=== PATIENT | male | born 1990 | race Hispanic/Latino ===

== ENCOUNTER 2022-09-16 11:36 | Inpatient (IN) | payer MEDICAID ==
[~2022-09-16] VITALS: Ht 121.9 cm; Wt 72.2 kg
[2022-09-16 12:08] LABS: ABG BASE EXCESS 3.6 mmol/L (-2.0-3.0); ABG HCO3 25.3 mmol/L (21.0-28.0); ABG OXYGEN SATURATION 94.2 % (95.0-99.0); ABG PCO2 30 mmHg (35-48)
[2022-09-16 12:15] LABS: BASOPHILS % (AUTO) 0.3 % (0.0-5.0); HEMATOCRIT 42.8 % (42-54); LYMPHOCYTES % (AUTO) 5.9 % (21.0-51.0); MEAN CORPUSCULAR HGB CONC 34.6 g/dL (32.0-36.0); MEAN CORPUSCULAR VOLUME 89.5 fL (79-99); MONOCYTES % (AUTO) 4.4 % (3.0-13.0); NEUTROPHILS % (AUTO) 88.8 % (40.0-77.0); PLATELET COUNT (AUTO) 161 K/uL (130-400); RED BLOOD CELL COUNT(AUTO) 4.78 MIL/uL (4.50-6.20); RED CELL DISTRIBUTION WIDTH 15.6 % (11.0-15.5); WHITE BLOOD COUNT (AUTO) 7.2 K/uL (4.8-10.8)
[2022-09-16] MEDS ORDERED: IPRATROPIUM/ALBUTEROL SULFATE 3 ML SOLUTION IH ONE (12:30)
[2022-09-16] MEDS ORDERED: LEVOFLOXACIN 500 MG/D5W 100 ML 100 ML IV SCH (12:30)
[2022-09-16] MEDS ORDERED: 0.9%NACL 1000ML 2,205 ML IV SCH (12:30)
[2022-09-16 12:41] LABS: CREATININE 1.1 mg/dL (0.5-1.5); POTASSIUM 3.5 mmol/L (3.5-5.1)
[2022-09-16 12:44] LABS: ALBUMIN 2.5 g/dL (3.5-5.0); TOTAL PROTEIN, SERUM 6.8 g/dL (6.0-8.3)
[2022-09-16 13:27] LABS: B-TYPE NATRIURETIC PEPTIDE 82 pg/mL (0-100)
[2022-09-16] MEDS ORDERED: MAGNESIUM 2GM PREMIX 50ML 50 ML IV PRN (14:00)
[2022-09-16] MEDS ORDERED: LIDOCAINE HCL-MPF 1% 2ML VIAL IV PRN (14:00)
[2022-09-16] MEDS ORDERED: POTASSIUM CHLORIDE 20MEQ/100ML 100 ML IV PRN (14:00)
[2022-09-16] MEDS ORDERED: GUAIFENESIN-DM 200/20 MG 10 ML PO PRN (14:00)
[2022-09-16] MEDS ORDERED: MAG/ALUM/SIMETH 30 ML UDCUP PO PRN (14:00)
[2022-09-16] MEDS ORDERED: LACTULOSE 20 GM/30 ML UDCUP PO PRN (14:00)
[2022-09-16] MEDS ORDERED: AZITHROMYCIN 500MG+NS 250ML 250 ML IV SCH (14:00)
[2022-09-16] MEDS ORDERED: NITROGLYCERIN 0.4 MG SL TAB SL PRN (14:00)
[2022-09-16] MEDS ORDERED: ONDANSETRON 4MG INJ IV PRN (14:00)
[2022-09-16] MEDS ORDERED: DiphenhydrAMINE HCL 50 MG/ML VIAL IV PRN (14:00)
[2022-09-16] MEDS ORDERED: DIPHENHYDRAMINE HCL 25 MG CAPSULE PO PRN (14:00)
[2022-09-16] MEDS ORDERED: ACETAMINOPHEN 325 MG TAB PO PRN ×2 (14:00)
[2022-09-16] MEDS: 0.9%NACL 1000ML 1,000 ML IV SCH (14:10)
[2022-09-16] MEDS: CEFTRIAXONE 1G VIAL IV SCH (14:10)
[2022-09-16 17:35] LABS: APPEARANCE,URINE CLEAR (CLEAR); BILIRUBIN,URINE NEGATIVE (NEGATIVE); COLOR,URINE LIGHT-YELLOW (YELLOW); GLUCOSE, URINE (UA) NEGATIVE (NEGATIVE); KETONES,URINE NEGATIVE (NEGATIVE); LEUKOCYTE ESTERASE ,URINE NEGATIVE Leu/uL (NEGATIVE); NITRATE,URINE NEGATIVE (NEGATIVE); OCCULT BLOOD,URINE NEGATIVE (NEGATIVE); PROTEIN,URINE NEGATIVE (NEGATIVE); UROBILINOGEN,URINE 0.2 mg/dL (0.2-1.0)
[2022-09-16 17:42] LABS: MUCUS,URINE RARE LPF (None Seen); SQUAMOUS EPITHELIAL CELL,UR RARE /HPF (0-2); WBC,URINE 0-1 /HPF (0-1)
[2022-09-16] MEDS: IPRATROPIUM/ALBUTEROL SULFATE 3 ML SOLUTION IH SCH ×2 (18:16→23:13)
[2022-09-16] MEDS: BUDESONIDE 0.5 MG/2 ML INH IH SCH (18:16)
[2022-09-16] MEDS: FAMOTIDINE 20MG TAB PO SCH (20:45)
[2022-09-16] MEDS ORDERED: FAMOTIDINE 20MG VIAL IV PRN (21:00)
[2022-09-17 00:40] VITALS: BP 105/67
[2022-09-17] MEDS: 0.9%NACL 1000ML 1,000 ML IV SCH ×2 (02:43→12:30)
[2022-09-17 05:30] VITALS: BP 101/71
[2022-09-17 05:49] LABS: BASOPHILS % (AUTO) 0.2 % (0.0-5.0); HEMATOCRIT 38.5 % (42-54); LYMPHOCYTES % (AUTO) 15.6 % (21.0-51.0); MEAN CORPUSCULAR HEMOGLOBIN 31.1 pg (27.0-33.0); MEAN CORPUSCULAR VOLUME 91.4 fL (79-99); MONOCYTES % (AUTO) 6.7 % (3.0-13.0); NEUTROPHILS % (AUTO) 76.8 % (40.0-77.0); PLATELET COUNT (AUTO) 144 K/uL (130-400); RED BLOOD CELL COUNT(AUTO) 4.21 MIL/uL (4.50-6.20); RED CELL DISTRIBUTION WIDTH 15.9 % (11.0-15.5); WHITE BLOOD COUNT (AUTO) 5.6 K/uL (4.8-10.8)
[2022-09-17 06:16] LABS: CREATININE 0.9 mg/dL (0.5-1.5); PHOSPHORUS 3.2 mg/dL (2.5-4.9); POTASSIUM 3.3 mmol/L (3.5-5.1); THYROID STIMULATING HORMONE 2.6 uIU/mL (0.36-3.74)
[2022-09-17] MEDS: IPRATROPIUM/ALBUTEROL SULFATE 3 ML SOLUTION IH SCH ×4 (06:56→23:54)
[2022-09-17] MEDS: BUDESONIDE 0.5 MG/2 ML INH IH SCH ×2 (06:56→19:20)
[2022-09-17 07:20] VITALS: BP 99/54
[2022-09-17] MEDS: FAMOTIDINE 20MG TAB PO SCH ×2 (09:29→21:02)
[2022-09-17] MEDS: ENOXAPARIN SODIUM 40 MG/0.4 ML SYRINGE SQ SCH (10:20)
[2022-09-17 11:20] VITALS: BP 124/58
[2022-09-17] MEDS: KCL 20 MEQ ERTAB PO PRN ×2 (12:42→14:40)
[2022-09-17] MEDS: CEFTRIAXONE 1G VIAL IV SCH (12:56)
[2022-09-17] MEDS: ZOSYN 3.375GM +NS 50ML IV SCH ×2 (14:39→20:59)
[2022-09-17 15:20] VITALS: BP 102/60
[2022-09-17 20:00] VITALS: BP 119/66
[2022-09-18] VITALS (7 sets, daily range): BP systolic 111–135; BP diastolic 59–93
[2022-09-18 03:58] LABS: BASOPHILS % (AUTO) 0.3 % (0.0-5.0); EOSINOPHILS % (AUTO) 0.8 % (0.0-8.0); HEMATOCRIT 38.5 % (42-54); LYMPHOCYTES % (AUTO) 31.8 % (21.0-51.0); MEAN CORPUSCULAR HEMOGLOBIN 30.5 pg (27.0-33.0); MEAN CORPUSCULAR HGB CONC 33.5 g/dL (32.0-36.0); MONOCYTES % (AUTO) 9.4 % (3.0-13.0); NEUTROPHILS % (AUTO) 56.9 % (40.0-77.0); PLATELET COUNT (AUTO) 175 K/uL (130-400); RED BLOOD CELL COUNT(AUTO) 4.23 MIL/uL (4.50-6.20); RED CELL DISTRIBUTION WIDTH 15.8 % (11.0-15.5); WHITE BLOOD COUNT (AUTO) 3.8 K/uL (4.8-10.8)
[2022-09-18 04:07] LABS: CREATININE 1.1 mg/dL (0.5-1.5); POTASSIUM 3.1 mmol/L (3.5-5.1)
[2022-09-18] MEDS: ZOSYN 3.375GM +NS 50ML IV SCH ×3 (06:07→21:37)
[2022-09-18] MEDS: POTASSIUM CHLORIDE 10% ELIXIR 20 MEQ/15 ML UDCUP PO PRN ×3 (06:07→23:37)
[2022-09-18] MEDS: BUDESONIDE 0.5 MG/2 ML INH IH SCH ×2 (06:33→19:14)
[2022-09-18] MEDS: IPRATROPIUM/ALBUTEROL SULFATE 3 ML SOLUTION IH SCH ×4 (06:33→23:26)
[2022-09-18] MEDS: FAMOTIDINE 20MG TAB PO SCH ×2 (08:59→21:37)
[2022-09-18] MEDS: ENOXAPARIN SODIUM 40 MG/0.4 ML SYRINGE SQ SCH (09:00)
[2022-09-18] MEDS ORDERED: AMOX1TAB16 PO (09:29)
[2022-09-18] MEDS ORDERED: BUDE0.5A3 IH (09:29)
[2022-09-18] MEDS ORDERED: IPRA3AMP24 IH (09:29)
[2022-09-18] MEDS: 0.9%NACL 1000ML 1,000 ML IV SCH (13:22)
[2022-09-19 04:42] VITALS: BP 102/59
[2022-09-19 05:25] LABS: BASOPHILS % (AUTO) 0.6 % (0.0-5.0); EOSINOPHILS % (AUTO) 2.1 % (0.0-8.0); MEAN CORPUSCULAR HEMOGLOBIN 30.8 pg (27.0-33.0); MEAN CORPUSCULAR HGB CONC 32.9 g/dL (32.0-36.0); MEAN CORPUSCULAR VOLUME 93.4 fL (79-99); MONOCYTES % (AUTO) 11.7 % (3.0-13.0); NEUTROPHILS % (AUTO) 45.7 % (40.0-77.0); PLATELET COUNT (AUTO) 227 K/uL (130-400); RED BLOOD CELL COUNT(AUTO) 4.39 MIL/uL (4.50-6.20); RED CELL DISTRIBUTION WIDTH 15.7 % (11.0-15.5); WHITE BLOOD COUNT (AUTO) 3.3 K/uL (4.8-10.8)
[2022-09-19 05:31] LABS: CREATININE 1.1 mg/dL (0.5-1.5)
[2022-09-19] MEDS: ZOSYN 3.375GM +NS 50ML IV SCH ×2 (05:51→13:14)
[2022-09-19] MEDS: BUDESONIDE 0.5 MG/2 ML INH IH SCH (06:32)
[2022-09-19] MEDS: IPRATROPIUM/ALBUTEROL SULFATE 3 ML SOLUTION IH SCH ×2 (06:32→11:27)
[2022-09-19] MEDS: ENOXAPARIN SODIUM 40 MG/0.4 ML SYRINGE SQ SCH (08:45)
[2022-09-19] MEDS: FAMOTIDINE 20MG TAB PO SCH (08:45)
[2022-09-19 09:53] VITALS: BP 111/81
[2022-09-19] MEDS: 0.9%NACL 1000ML 1,000 ML IV SCH (10:20)
[2022-09-19 11:51] VITALS: BP 100/64
== END 2022-09-19 14:45 | disposition home or self-care (01) | DRG 720 ==
LOC: EDH 11:36 → EDHIP 11:37 → UNDOADMIN 13:35 → EDHIP 13:35 → 4BH 09-17 00:56
PROVIDERS: ADMIT Internal Medicine; ATTEND Internal Medicine
DX: A41.9 Sepsis, unspecified organism (principal); J96.01 Acute respiratory failure with hypoxia; J18.9 Pneumonia, unspecified organism; Z20.822 Contact with and (suspected) exposure to COVID-19; E87.6 Hypokalemia; Q90.9 Down syndrome, unspecified
CPT/HCPCS: 36415; 36600; 71045; 74230; 80048; 80053; 81001; 82435; 82550; 82803; 82947; 83605; 83735; 83880; 84100; 84132; 84145; 84295; 84443; 84484; 85018; 85025; 87040; 87635; 87804; 87880; 92610; 92611; 93005; 93306; 94640; 94664; 94760; 99291; C9803; G0378; J0456; J0696; J1650; J1956; J2543; J7030

== ENCOUNTER 2023-05-24 02:38 | Inpatient (IN) | payer MEDICAID ==
[~2023-05-24] VITALS: Ht 139.7 cm; Wt 74.4 kg
[~2023-05-24 02:38] MED LIST: AMOX1TAB16 PO; BUDE0.5A3 IH; IPRA3AMP24 IH
[2023-05-24] MEDS ORDERED: IBUPROFEN 100 MG/5 ML SUSP UDCUP ONE (03:59)
[2023-05-24] MEDS ORDERED: ACETAMINOPHEN 325 MG/10.15ML UDCUP ONE (03:59)
[2023-05-24] MEDS ORDERED: ACETAMINOPHEN 500 MG TABLET PO ONE (04:00)
[2023-05-24] MEDS ORDERED: IBUPROFEN 800 MG TAB PO ONE (04:00)
[2023-05-24] MEDS ORDERED: 0.9%NACL 1000ML 2,259 ML IV ONE (04:00)
[2023-05-24 04:16] LABS: BASOPHILS # (AUTO) 0.03 K/uL (0.00-0.20); BASOPHILS % (AUTO) 0.4 % (0.0-5.0); EOSINOPHILS # (AUTO) 0.01 K/uL (0.00-0.70); EOSINOPHILS % (AUTO) 0.1 % (0.0-8.0); HEMATOCRIT 49.9 % (42-54); IMMATURE GRANULOCYTE ABSOLUTE 0.04 K/uL (0-1); LYMPHOCYTES # (AUTO) 0.3 K/uL (1.0-4.8); MEAN CORPUSCULAR HEMOGLOBIN 31.5 pg (27.0-33.0); MEAN CORPUSCULAR HGB CONC 33.7 g/dL (32.0-36.0); MEAN CORPUSCULAR VOLUME 93.4 fL (79-99); MONOCYTES # (AUTO) 0.4 K/uL (0.1-1.0); MONOCYTES % (AUTO) 4.7 % (3.0-13.0); NEUTROPHILS # (AUTO) 7.7 K/uL (1.8-7.7); NEUTROPHILS % (AUTO) 90.3 % (40.0-77.0); PLATELET COUNT (AUTO) 186 K/uL (130-400); RED BLOOD CELL COUNT(AUTO) 5.34 MIL/uL (4.50-6.20); RED CELL DISTRIBUTION WIDTH 15.1 % (11.0-15.5); WHITE BLOOD COUNT (AUTO) 8.5 K/uL (4.8-10.8)
[2023-05-24 04:26] LABS: CREATININE 1.3 mg/dL (0.5-1.5); POTASSIUM 3.9 mmol/L (3.5-5.1)
[2023-05-24 04:30] LABS: ALBUMIN 3.4 g/dL (3.5-5.0); BILIRUBIN,TOTAL 0.3 mg/dL (0.2-1.0); TOTAL PROTEIN, SERUM 8.3 g/dL (6.0-8.3)
[2023-05-24] MEDS ORDERED: ALBUTEROL 0.083% 2.5 MG/3 ML INH IH ONE (04:30)
[2023-05-24] MEDS ORDERED: FAMOTIDINE 20MG VIAL IV ONE (04:30)
[2023-05-24] MEDS ORDERED: METOCLOPRAMIDE 10 MG/2 ML VIAL IVP ONE (04:30)
[2023-05-24] MEDS ORDERED: DEXAMETHASONE SOD PHOSPHATE 4 MG/ML 1ML VIAL IV ONE (04:30)
[2023-05-24 04:39] LABS: RAPID GROUP A STREP negative (NEGATIVE)
[2023-05-24 04:45] VITALS: PULSE 117; RESP 18
[2023-05-24 04:47] LABS: SARS-CoV-2, RNA, NAAT POSITIVE SARS CoV-2 (NEGATIVE)
[2023-05-24 04:48] LABS: INFLUENZA TYPE A Negative For Type A (NEGATIVE); INFLUENZA TYPE B Negative For Type B (NEGATIVE)
[2023-05-24] MEDS ORDERED: CEFTRIAXONE 2GM VIAL IVPB ONE (06:30)
[2023-05-24 06:41] VITALS: TEMP 99.3
[2023-05-24] MEDS: AZITHROMYCIN 500MG+NS 250ML IVPB SCH (06:45)
[2023-05-24 08:47] LABS: ABG HCO3 20.4 mmol/L (21.0-28.0); ABG OXYGEN SATURATION 94.2 % (95.0-99.0); ABG PCO2 32 mmHg (35-48); ABG PH 7.418 (7.350-7.450); CARBON MONOXIDE 1.1; HHb 5.7; PO2, ARTERIAL BG 69.8 mmHg (83.0-108.0); VENT MODE, BG 2 L NC (ROOM AIR)
[2023-05-24] MEDS ORDERED: ACETAMINOPHEN 325 MG TAB PO PRN ×2 (09:30)
[2023-05-24] MEDS ORDERED: ONDANSETRON 4MG INJ IV PRN (09:30)
[2023-05-24] MEDS ORDERED: AZITHROMYCIN 500MG+NS 250ML IVPB SCH (09:30)
[2023-05-24] MEDS: CEFTRIAXONE 1G VIAL IVPB SCH (09:30)
[2023-05-24] MEDS ORDERED: GUAIFENESIN-DM 200/20 MG 10 ML PO PRN (10:00)
[2023-05-24] MEDS: IPRATROPIUM/ALBUTEROL SULFATE 3 ML SOLUTION IH SCH ×4 (10:38→22:42)
[2023-05-24 10:42] VITALS: PULSE 75; RESP 18
[2023-05-24] MEDS: DEXAMETHASONE SOD PHOSPHATE 4 MG/ML 1ML VIAL IVP SCH (16:44)
[2023-05-24 18:38] VITALS: PULSE 103; RESP 18
[2023-05-24 18:41] VITALS: PULSE 103; RESP 18; O2SAT 96
[2023-05-24 22:42] VITALS: PULSE 106; RESP 18
[2023-05-25] VITALS (13 sets, daily range): BP systolic 93–119; BP diastolic 50–62; PULSE 72–100; RESP 17–22; O2SAT 94–95
[2023-05-25] MEDS: DEXAMETHASONE SOD PHOSPHATE 4 MG/ML 1ML VIAL IVP SCH ×3 (05:00→22:32)
[2023-05-25] MEDS: AZITHROMYCIN 500MG+NS 250ML IVPB SCH (05:01)
[2023-05-25 06:43] LABS: BASOPHILS # (AUTO) 0.01 K/uL (0.00-0.20); BASOPHILS % (AUTO) 0.1 % (0.0-5.0); HEMATOCRIT 43.4 % (42-54); IMMATURE GRANULOCYTE ABSOLUTE 0.06 K/uL (0-1); LYMPHOCYTES # (AUTO) 0.3 K/uL (1.0-4.8); LYMPHOCYTES % (AUTO) 2.2 % (21.0-51.0); MEAN CORPUSCULAR HEMOGLOBIN 31.3 pg (27.0-33.0); MEAN CORPUSCULAR HGB CONC 33.6 g/dL (32.0-36.0); MEAN CORPUSCULAR VOLUME 92.9 fL (79-99); MONOCYTES # (AUTO) 0.3 K/uL (0.1-1.0); NEUTROPHILS % (AUTO) 95.3 % (40.0-77.0); PLATELET COUNT (AUTO) 187 K/uL (130-400); RED BLOOD CELL COUNT(AUTO) 4.67 MIL/uL (4.50-6.20); RED CELL DISTRIBUTION WIDTH 15.9 % (11.0-15.5); WHITE BLOOD COUNT (AUTO) 14.7 K/uL (4.8-10.8)
[2023-05-25 07:05] LABS: INR 1.04 (0.85-1.15)
[2023-05-25 07:07] LABS: PARTIAL THROMBOPLASTIN TIME 30.3 SEC (26.3-35.5)
[2023-05-25 07:11] LABS: ALBUMIN 2.8 g/dL (3.5-5.0); BILIRUBIN,TOTAL 0.2 mg/dL (0.2-1.0); POTASSIUM 3.8 mmol/L (3.5-5.1); TOTAL PROTEIN, SERUM 7.2 g/dL (6.0-8.3)
[2023-05-25] MEDS: IPRATROPIUM/ALBUTEROL SULFATE 3 ML SOLUTION IH SCH ×4 (07:25→23:40)
[2023-05-25] MEDS: CEFTRIAXONE 1G VIAL IVPB SCH (08:20)
[2023-05-25 13:21] LABS: SARS-CoV-2, RNA, NAAT POSITIVE SARS CoV-2 (NEGATIVE)
[2023-05-26 06:45] VITALS: PULSE 73; RESP 18
[2023-05-26 11:31] VITALS: PULSE 72; RESP 18
[2023-05-27 00:36] LABS: ALBUMIN 2.6 g/dL (3.5-5.0); BILIRUBIN,TOTAL 0.1 mg/dL (0.2-1.0); POTASSIUM 3.4 mmol/L (3.5-5.1); TOTAL PROTEIN, SERUM 6.9 g/dL (6.0-8.3)
[2023-05-28 10:11] LABS: BASOPHILS # (AUTO) 0.02 K/uL (0.00-0.20); BASOPHILS % (AUTO) 0.1 % (0.0-5.0); HEMATOCRIT 43.8 % (42-54); IMMATURE GRANULOCYTE ABSOLUTE 0.07 K/uL (0-1); LYMPHOCYTES # (AUTO) 0.4 K/uL (1.0-4.8); LYMPHOCYTES % (AUTO) 2.4 % (21.0-51.0); MEAN CORPUSCULAR HEMOGLOBIN 31.3 pg (27.0-33.0); MEAN CORPUSCULAR HGB CONC 33.1 g/dL (32.0-36.0); MEAN CORPUSCULAR VOLUME 94.4 fL (79-99); MONOCYTES # (AUTO) 0.3 K/uL (0.1-1.0); MONOCYTES % (AUTO) 1.6 % (3.0-13.0); NEUTROPHILS # (AUTO) 15.4 K/uL (1.8-7.7); NEUTROPHILS % (AUTO) 95.5 % (40.0-77.0); PLATELET COUNT (AUTO) 212 K/uL (130-400); RED BLOOD CELL COUNT(AUTO) 4.64 MIL/uL (4.50-6.20); RED CELL DISTRIBUTION WIDTH 15.9 % (11.0-15.5); WHITE BLOOD COUNT (AUTO) 16.1 K/uL (4.8-10.8)
[2023-05-28 10:23] LABS: ERYTHROCYTE SEDIMENTATION RATE 22 MM/HR (0-15)
== END 2023-05-26 14:00 | disposition home or self-care (01) | DRG 720 ==
LOC: EDH 02:38 → EDHIP 02:39 → 3CH 05-25 01:08
PROVIDERS: ADMIT Hospitalist; ATTEND Hospitalist
DX: A41.89 Other specified sepsis (principal); J96.01 Acute respiratory failure with hypoxia; J12.82 Pneumonia due to coronavirus disease 2019; U07.1 COVID-19; H91.3 Deaf nonspeaking, not elsewhere classified; R65.20 Severe sepsis without septic shock; Z82.49 Family history of ischemic heart disease and other diseases of the circulatory system; Z82.5 Family history of asthma and other chronic lower respiratory diseases
CPT/HCPCS: 36415; 36600; 71045; 80053; 82435; 82803; 82947; 83605; 84132; 84145; 84295; 85018; 85025; 85378; 85610; 85651; 85730; 86140; 87040; 87635; 87804; 87880; 94640; 94664; C9803; G0378; J0456; J0696; J1100; J2765; J3490; J7030

== ENCOUNTER 2023-11-18 21:38 | Emergency (ER) | payer MEDICAID ==
[~2023-11-18] VITALS: Ht 139.7 cm; Wt 74.4 kg
[2023-11-18 21:56] VITALS: BP 95/56; PULSE 84; RESP 20
[2023-11-18 22:24] LABS: RAPID GROUP A STREP negative (NEGATIVE)
[2023-11-18 22:30] LABS: SARS-CoV-2, RNA, NAAT NEGATIVE SARS CoV-2 (NEGATIVE)
[2023-11-18 22:35] LABS: INFLUENZA TYPE A Negative For Type A (NEGATIVE); INFLUENZA TYPE B Negative For Type B (NEGATIVE)
== END 2023-11-18 23:14 | disposition home or self-care (01) ==
LOC: EDH 21:38
DX: B34.9 Viral infection, unspecified (principal); Z20.822 Contact with and (suspected) exposure to COVID-19
CPT/HCPCS: 87635; 87804; 87880